=== PATIENT | male | born 1970 | race African-American/Black ===

== ENCOUNTER 2018-01-05 10:12 | Emergency (ER) | payer OTHER ==
--- OUTSIDE RECORDS SUMMARY | 2018-01-05 10:14 | XMS REPORT | Clinical Summary ---
:1970 Author Organization [facility] Address [address] [place] [address] Care Team Providers Name Role Phone Rafael Santos MD Primary Care Provider Allergies Active Allergy Reactions Severity Noted Date Comments Adhesive Tape-Silicones Dermatitis High 06/15/2016 Medipore H surgical soft cloth tape also causes Blisters. Current Medications Prescription Sig. Disp. Refills Start Date End Date Status amLODIPine (NORVASC) 10 10 mg. 08/21/2012 Active MG tablet lisinopril-hydrochloroth 1 tablet. 08/21/2012 Active iazide (PRINZIDE,ZESTORETIC) 20-25 mg per tablet multivitamin with Take 1 tablet by Active minerals tablet mouth daily. ondansetron (ZOFRAN) 8 TAKE 1 TABLET BY 5 04/26/2017 Active MG tablet MOUTH EVERY 8 HOURS NEEDED FOR NAUSEA AND VOMITING lisinopril-hydrochloroth Take 1 tablet by 0 04/24/2017 Active iazide mouth 2 (two) times (PRINZIDE,ZESTORETIC) a day. 20-12.5 mg per tablet Active Problems Problem Noted Date History of kidney cancer 10/31/2016 Encounters Date Type Specialty Care Team Description 07/20/2017 Abstract General Surgery Wendi Petit MD 07/20/2017 Abstract General Surgery Wendi Petit MD 05/05/2017 Office Visit Urology Mervin Moreno History of kidney cancer MD Slaas (Primary Dx) Yenny Denton MD 05/04/2017 Telephone Urology Yenny Denton MD 03/29/2017 Telephone Urology Sandra Fields MA after 01/04/2017 Family History Medical History Relation Name Comments No Known Problems Brother No Known Problems Daughter Diabetes Father Hypertension Father No Known Problems Maternal Grandfather No Known Problems Maternal Grandmother Diabetes Mother Hypertension Mother No Known Problems Paternal Grandfather No Known Problems Paternal Grandmother Diabetes Sister No Known Problems Son Relation Name Status Comments Brother Daughter Father Alive Maternal Grandfather Maternal Grandmother Mother Alive Paternal Grandfather Paternal Grandmother Sister Alive Son Social History Tobacco Use Types Packs/Day Years Used Date Never Smoker Smokeless Tobacco: Never Used Alcohol Use Drinks/Week oz/Week Comments Yes occasional beer Sex Assigned at Date Recorded Not on file Last Filed Vital Signs Not on file Plan of Treatment Health Maintenance Due Date Last Done Comments INFLUENZA VACCINE 03/07/2018 08/21/2012 Implants Implanted Type Area Mainspring Strip Gauger Device Expiration Model / Identifier Date Serial / Lot Kit Selnt Plrl Air Leak 4ml Strl Progel - [id number] Surgical N/A: N/A [employer] [id number] / Implanted: 05/11/2016 (Quantity not on file) Implants; / Expanders; Extenders; Surgical Wires Results POC urinalysis dipstick (05/05/2017 12:21 PM) Component Value Ref Range Color urine, POC Yellow Clarity urine, POC Clear Glucose urine, POC Negative Negative Bilirubin urine, POC Negative Negative Ketones urine, POC Negative Negative Specific gravity urine, POC 1.020 1.005 - 1.030 Blood urine, POC Negative Negative pH urine, POC 6.0 5.0, 5.5, 6.0, 6.5, 7.0, 7.5, 8.0, 8.5 Protein urine, POC Negative Negative Urobilinogen urine, POC <2.0 <2.0 Nitrite urine, POC Negative Negative Leukocyte esterase urine, POC Negative Negative Specimen Performing Laboratory Urine after 01/04/2017 Insurance Payer Benefit Plan / Group Subscriber ID Type Phone Address AETNA AETNA HMO,POS,EPO, MC/EC xxxxxx HMO Home: [address] [phone] [place] [id number] [address] [place] [address]
[2018-01-05 11:26] LABS: Absolute Lymphocytes (CBC) 1.5 K/uL (0.7-4.9); Absolute Neutrophil 3.7 K/uL (1.8-8.0); Basophils % 0.6 % (0-1.3); Eosinophils % 2.2 % (0-4.4); Hematocrit 38.1 % (39.6-49.0); Lymphocytes % 23.3 % (15.3-44.8); MPV 7.2 fL (7.6-11.3); Monocytes % 15.3 % (3.3-12.3); RBC Red Blood Cell Count 4.18 M/uL (4.33-5.43)
[2018-01-05 11:27] LABS: Protime INR 1.11
[2018-01-05 11:35] LABS: Potassium 3.4 mEq/L (3.6-5.0)
[2018-01-05 12:00] LABS: Blood Morphology Comment NOT SEEN (NOT SEEN); Platelet Estimate ADEQ; Urine White Blood Cell Casts OK
--- NOTE | 2018-01-05 12:19 | RAD REPORT ---
EXAM DESCRIPTION: CT - Chest For Pe Angio - 01/05/2018 12:07 pm CLINICAL HISTORY: Chest pain, shortness of breath, colon cancer history COMPARISON: Chest film January 05, CT chest June 2017 TECHNIQUE: Dynamically enhanced 3 mm thick images of the chest were obtained during administration o f approximately 150mL Isovue 370 IV contrast. Coronal and oblique reconstruction images were generate d and reviewed. Exam utilizes a protocol to evaluate the pulmonary arterial tree. All CT scans are performed using dose optimization technique as appropriate and may include automated exposure control or mA/KV adjustment according to patient size. FINDINGS: No pulmonary emboli are identified. The aorta as imaged shows no acute or suspicious finding. Large pericardial effusion is present up to 3 cm in thickness. This is new from comparison. The patient has innumerable variably sized pulmonary metastatic lesions. These are progressive from t he prior examination. Metastatic disease is most pronounced in the upper lung escobar were the nodules have coalesced into large areas of airspace opacification. No pleural effusion or pleural thickening . No significant mediastinal or hilar lymphadenopathy. No hematoma or mass of the chest wall. Patient h as prominent degenerative change at the first rib articulation with the sternum. There is a fracture of the second rib at the junction with the sternum. No other rib fractures seen. The second rib fract ure is not clearly pathologic. No hematoma, mass or other focal abnormality at the fracture site. Analilia r the patient's right-sided port there is no hematoma, fluid or other focal abnormality. Skeletal mus culature is unremarkable. IMPRESSION: No pulmonary emboli. Large pericardial effusion up to 3 cm in thickness. This is new from the June 2017 imaging. Innumerable pulmonary metastatic lesions progressive from already very advanced disease in June 08. Nodules in the upper lung escobar have coalesced into large areas of lung parenchymal opacificati on. Anterior right second rib fracture at the junction with the sternum. No definitive metastatic etiolog y though this would still be most likely given the absence of any trauma.No muscle or soft tissue abn ormality near the patient's port.
--- NOTE | 2018-01-05 12:36 | RAD REPORT ---
EXAM DESCRIPTION: RAD - Chest Single View - 01/05/2018 11:41 am CLINICAL HISTORY: Anterior chest pain, cough, colon cancer COMPARISON: June 2017 TECHNIQUE: AP portable chest image was obtained 1132 hours . FINDINGS: Lung volumes are low. Port-A-Cath is in place. Cardiac silhouette is grossly enlarged with margins poorly defined and hypodense. This is a pattern commonly seen with large pericardial effusio n. Innumerable metastatic lesions are present throughout the lung escobar progressive since prior imagin g. No gross bone deformity seen. No acute aortic findings suspected. IMPRESSION: Innumerable metastatic lesions throughout the lung escobar progressive from June 2017 . Large pericardial effusion.
--- NOTE | 2018-01-05 13:37 | EKG ---
Test Date: 2018-01-05 Test Time: 10:21:18 Buffer Operator: JOHNNY MEASUREMENT RESULTS: Intervals: Rate: 118 AK: 144 QRSD: 86 QT: 322 QTc: 451 [place]: P: 37 AK: 144 QRS: 44 T: 49 INTERPRETIVE STATEMENTS: Sinus tachycardia Otherwise normal ECG Compared to ECG 07/05/2017 08:11:19 No significant changes Electronically Signed On 01-05-18 13:36:23 CDT by Vimal Thompson
--- NOTE | 2018-01-05 14:04 | ER ---
Nurse's Notes [facility] Name: Juan Mott Age: 47 yrs Sex: Male : 1970 Arrival Date: 01/05/2018 Time: 10:14 Bed 7 Private MD: Rafael Santos Diagnosis: Dyspnea;Fracture of one rib, right side Presentation: 01/05 10:20 Presenting complaint: Patient states: SOB x "few days, " Pt reports a "sore muscle sv under where my port is" that is felt when he coughs. Pt is pointing to the right side of his chest with no radiation. Pt uses O2 \\T\\ 2L per NC at home and is on it here. Transition of care: patient was not received from another setting of care. Onset of symptoms was January 01, 2018. Care prior to arrival: None. 10:20 Method Of Arrival: Wheelchair sv 10:20 Acuity: MELISSA 3 sv 10:21 Risk Assessment: Do you want to hurt yourself or someone else? Patient reports no sv desire to harm self or others. Initial Sepsis Screen: Does the patient meet any 2 criteria? No. Patient's initial sepsis screen is negative. Does the patient have a suspected source of infection? No. Patient's initial sepsis screen is negative. Triage Assessment: 10:25 General: Appears in no apparent distress. comfortable, well developed, Behavior is sv calm, cooperative, appropriate for age. Pain: Complains of pain in right clavicle and anterior aspect of right upper chest Pain does not radiate. Pain currently is 0 out of 10 on a pain scale. at worst was 3 out of 10 on a pain scale. Quality of pain is described as "soreness" Pain began 2-3 days ago. Is intermittent, episodic, Aggravated by "coughing". EENT: No signs and/or symptoms were reported regarding the EENT system. Neuro: Level of Consciousness is awake, alert, obeys commands, Oriented to person, place, time, situation, Moves all extremities. Full function Gait is steady, Speech is normal. Cardiovascular: Heart tones S1 S2 present Patient's skin is warm and dry. Pulses are 3+ in right radial artery and left radial artery. Respiratory: Reports shortness of breath on exertion pain with cough Respiratory effort is even, unlabored, Respiratory pattern is symmetrical, tachypnea Breath sounds are clear bilaterally. Derm: Skin is pink, warm \\T\\ dry. Historical: - Allergies: 10:34 NKA; sv - Home Meds: 10:34 experimental cancer drug [Active]; sv - PMHx: 10:34 colon cancer; with mets to the lungs; Hypertension; sv - PSHx: 10:34 colon cancer surgery; Hernia repair; kidney biopsy; partial right kidney removed d/t sv cancer growth; - Immunization history:: Adult Immunizations up to date. - Social history:: Smoking status: Patient/guardian denies using tobacco, Patient/guardian denies using street drugs, IV drugs. - Ebola Screening: : Patient negative for fever greater than or equal to 101.5 degrees Fahrenheit, and additional compatible Ebola Virus Disease symptoms Patient denies exposure to infectious person Patient denies travel to an Ebola-affected area in the 21 days before illness onset No symptoms or risks identified at this time. Screenin:35 Abuse screen: Denies threats or abuse. Denies injuries from another. Nutritional sv screening: No deficits noted. Tuberculosis screening: No symptoms or risk factors identified. Fall Risk None identified. Assessment: 11:30 Reassessment: Patient appears in no apparent distress at this time. No changes from sv previously documented assessment. Patient and/or family updated on plan of care and expected duration. Pain level reassessed. Patient is alert, oriented x 3, equal unlabored respirations, skin warm/dry/pink. 14:37 Reassessment: Patient appears in no apparent distress at this time. No changes from sv previously documented assessment. Patient and/or family updated on plan of care and expected duration. Pain level reassessed. Patient is alert, oriented x 3, equal unlabored respirations, skin warm/dry/pink. Vital Signs: 10:34 BP 107 / 71; Pulse 119; Resp 25; Temp 98.5; Pulse Ox 98% on 3 lpm NC; Weight 117.93 kg sv (R); Height 6 ft. 1 in. (185.42 cm) (R); Pain 0/10; 11:45 BP 99 / 78; Pulse 116; Resp 28; Pulse Ox 100% on 3 lpm NC; sv 13:09 BP 102 / 78; Pulse 112 MON; Resp 26; Pulse Ox 100% on 3 lpm NC; sv 10:34 Body Mass Index 34.30 (117.93 kg, 185.42 cm) sv 13:09 Sinus tachycardia sv ED Course: 10:14 Patient arrived in ED. as 10:14 Rafael Santos MD is Private Physician. as 10:20 Vanessa Adams, LETICIA is Primary Nurse. sv 10:22 Evaristo Kwan MD is Attending Physician. gs 10:25 EKG done, by configuration technician. reviewed by Evaristo Kwan MD. at1 10:31 Triage completed. sv 10:35 Arm band placed on right wrist. sv 10:35 Patient has correct armband on for positive identification. Bed in low position. Call sv light in reach. Adult w/ patient. site monitor on. Pulse ox on. NIBP on. Door closed. Head of bed elevated. 10:36 Oxygen administration via nasal cannula \\T\\ 3L/min. sv 10:38 Initial lab(s) drawn, by me, held in ED. dh3 10:41 Inserted saline lock: 20 gauge in left forearm, using aseptic technique. Blood dh3 collected. 11:06 Radiology exam delayed due to lab results not completed at this time. (BUN/Creatinine). kw1 11:39 CBC Smear Scan Sent. sv 11:39 XRAY Chest (1 view) Sent. sv 11:42 XRAY Chest (1 view) In Process Unspecified. EDMS 12:[address] via wheelchair. sw 12:07 CT Chest For PE Angio In Process Unspecified. EDMS 12:11 CT completed. Patient tolerated procedure well. Patient moved back from CT. sw 13:51 Echocardiogram was performed. at1 14:38 No provider procedures requiring assistance completed. IV discontinued, intact, sv bleeding controlled, No redness/swelling at site. Pressure dressing applied. Administered Medications: No medications were administered Outcome: 14:03 Discharge ordered by . gs 14:38 Discharged to home ambulatory, via wheelchair, with family, with his home oxygen bottle sv and tubing 14:38 Condition: stable 14:38 Discharge instructions given to patient, Instructed on discharge instructions, follow up and referral plans. no drinking with medication, no driving heavy equipment, medication usage, Demonstrated understanding of instructions, follow-up care, medications, Prescriptions given X 1. 14:39 Patient left the ED. sv Signatures: Dispatcher [employer] EDPA Vanessa Adams RN RN sv Martinez, Amelia as gonzales, Amanda, residency director EKG Tat1 Lucita Feliciano Deanna 3 Evaristo Kwan MD MD Christy Xavier1 Corrections: (The following items were deleted from the chart) 10:56 10:34 BP 107 / 71; Pulse 119bpm; Resp 20bpm; Pulse Ox 98% 3 lpm Nasal Cannula; Temp sv 98.5F; 117.93 kg Reported; Height 6 ft. 1 in. Reported; BMI: 34.3; Pain 0/10; sv 10:57 10:25 Cardiovascular: Patient's skin is warm and dry. sv sv 10:57 10:25 Respiratory: Reports shortness of breath on exertion pain with cough Respiratory sv effort is even, unlabored, Respiratory pattern is regular, symmetrical, sv
--- NOTE | 2018-01-05 14:04 | EDPHYS ---
Physician Documentation [facility] Name: Juan Mott Age: 47 yrs Sex: Male : 1970 Arrival Date: 01/05/2018 Time: 10:14 Bed 7 Private MD: Rafael Santos ED Physician Evaristo Kwan HPI: 01/05 16:33 This 47 yrs old Black Male presents to ER via Wheelchair with complaints of Chest Pain, gs Shortness Of Breath. 16:33 The patient or guardian reports chest pain that is located primarily in the anterior gs chest wall, right. Onset: 2 day(s) ago, and became persistent. The pain does not radiate. Associated signs and symptoms: Pertinent positives: shortness of breath. The chest pain is described as sharp. Duration: The patient or guardian reports multiple episodes, that are intermittent, that wax and wane, with no pattern. Modifying factors: the symptoms are aggravated by deep breath, twisting torso. Severity of pain: At its worst the pain was moderate in the emergency department the pain is unchanged. The patient has experienced similar episodes in the past, a few times. Historical: - Allergies: 10:34 NKA; sv - Home Meds: 10:34 experimental cancer drug [Active]; sv - PMHx: 10:34 colon cancer; with mets to the lungs; Hypertension; sv - PSHx: 10:34 colon cancer surgery; Hernia repair; kidney biopsy; partial right kidney removed d/t sv cancer growth; - Immunization history:: Adult Immunizations up to date. - Social history:: Smoking status: Patient/guardian denies using tobacco, Patient/guardian denies using street drugs, IV drugs. - Ebola Screening: : Patient negative for fever greater than or equal to 101.5 degrees Fahrenheit, and additional compatible Ebola Virus Disease symptoms Patient denies exposure to infectious person Patient denies travel to an Ebola-affected area in the 21 days before illness onset No symptoms or risks identified at this time. ROS: 16:33 All other systems are negative. gs Exam: 16:33 Head/Face: Normocephalic, atraumatic. Eyes: Pupils equal round and reactive to light, gs extra-ocular motions intact. Lids and lashes normal. Conjunctiva and sclera are non-icteric and not injected. Cornea within normal limits. Periorbital areas with no swelling, redness, or edema. ENT: Nares patent. No nasal discharge, no septal abnormalities noted. Tympanic membranes are normal and external auditory canals are clear. Oropharynx with no redness, swelling, or masses, exudates, or evidence of obstruction, uvula midline. Mucous membranes moist. Neck: Trachea midline, no thyromegaly or masses palpated, and no cervical lymphadenopathy. Supple, full range of motion without nuchal rigidity, or vertebral point tenderness. No Meningismus. Chest/axilla: Normal chest wall appearance and motion. Nontender with no deformity. No lesions are appreciated. Abdomen/GI: Soft, non-tender, with normal bowel sounds. No distension or tympany. No guarding or rebound. No evidence of tenderness throughout. Back: No spinal tenderness. No costovertebral tenderness. Full range of motion. Skin: Warm, dry with normal turgor. Normal color with no rashes, no lesions, and no evidence of cellulitis. MS/ Extremity: Pulses equal, no cyanosis. Neurovascular intact. Full, normal range of motion. Neuro: Awake and alert, GCS 15, oriented to person, place, time, and situation. Cranial nerves II-XII grossly intact. Motor strength 5/5 in all extremities. Sensory grossly intact. Cerebellar exam normal. Normal gait. 16:33 Constitutional: The patient appears alert, awake. 16:33 Cardiovascular: Rate: tachycardic, Rhythm: regular, Pulses: no pulse deficits are appreciated, Heart sounds: normal. 16:33 ECG was reviewed by the Attending Physician. 16:33 Respiratory: the patient does not display signs of respiratory distress, Respirations: tachypnea, Breath sounds: decreased breath sounds, that are mild, are located in both bases. Vital Signs: 10:34 BP 107 / 71; Pulse 119; Resp 25; Temp 98.5; Pulse Ox 98% on 3 lpm NC; Weight 117.93 kg sv (R); Height 6 ft. 1 in. (185.42 cm) (R); Pain 0/10; 11:45 BP 99 / 78; Pulse 116; Resp 28; Pulse Ox 100% on 3 lpm NC; sv 13:09 BP 102 / 78; Pulse 112 MON; Resp 26; Pulse Ox 100% on 3 lpm NC; sv 10:34 Body Mass Index 34.30 (117.93 kg, 185.42 cm) sv 13:09 Sinus tachycardia sv MDM: 11:03 Patient medically screened. gs 16:33 Differential diagnosis: abnormal EKG, pulmonary embolus, thoracic aortic disection. Data reviewed: vital signs, nurses notes. Response to treatment: the patient's symptoms have mildly improved after treatment, and as a result, I will discharge patient. 01/05 11:04 Order name: Basic Metabolic Panel; Complete Time: 12:47 01/05 11:04 Order name: CBC with Diff; Complete Time: 12:47 01/05 11:04 Order name: PT-INR; Complete Time: 12:47 01/05 11:04 Order name: Troponin (emerg Dept Use Only); Complete Time: 12:47 01/05 11:04 Order name: XRAY Chest (1 view); Complete Time: 12:47 01/05 11:32 Order name: CBC Smear Scan; Complete Time: 12:47 EDMS 01/05 11:04 Order name: EKG; Complete Time: 11:05 01/05 11:04 Order name: Cardiac monitoring; Complete Time: 11:04 01/05 11:04 Order name: EKG - Nurse/Tech; Complete Time: 11:04 01/05 11:04 Order name: IV Saline Lock; Complete Time: 11:05 01/05 11:04 Order name: Labs collected and sent; Complete Time: 11:05 01/05 11:04 Order name: O2 Per Protocol; Complete Time: 11:05 01/05 11:04 Order name: CT Chest For PE Angio; Complete Time: 12:47 01/05 13:12 Order name: Echo w/ Doppler bd 01/05 11:04 Order name: O2 Sat Monitoring; Complete Time: 11:05 gs EC:33 Rate is 118 beats/min. Rhythm is regular, Sinus tachycardia. VT interval is normal. QRS gs interval is normal. T waves are Normal. No ST changes noted. Clinical impression: Sinus tachycardia. Interpreted by me. Administered Medications: No medications were administered Disposition: 01/05/18 14:03 Discharged to Home. Impression: Dyspnea, Fracture of one rib, right side. - Condition is Stable. - Discharge Instructions: Rib Fracture, Shortness of Breath, [id number]. - Prescriptions for Tylenol- Codeine #4 300-60 mg Oral Tablet - take 1 tablet by ORAL route every 6 hours As needed; 10 tablet. - Medication Reconciliation Form, Thank You Letter, Antibiotic Education, Prescription Opioid Use form. - Follow up: Private Physician; When: 1 week; Reason: Recheck today's complaints, Re-evaluation by your physician. Signatures: Dispatcher [employer] Vanessa Seaman RN RN sv Starr, Gregory, MD MD gs Corrections: (The following items were deleted from the chart) 14:39 14:03 01/05/2018 14:03 Discharged to Home. Impression: Dyspnea; Fracture of one rib, sv right side. Condition is Stable. Forms are Medication Reconciliation Form, Thank You Letter, Antibiotic Education, Prescription Opioid Use. Follow up: Private Physician; When: 1 week; Reason: Recheck today's complaints, Re-evaluation by your physician. gs
--- NOTE | 2018-01-05 14:24 | ECHO ---
HEIGHT: ft in WEIGHT: lb oz DATE OF STUDY: 01/05/[address]: Evaristo Kwan MD 2-DIMENSIONAL: YES M.MODE: YES DOPPLER: YES COLOR FLOW: YES TDS: PORTABLE: DEFINITY: BUBBLE STUDY: DIAGNOSIS: PERICARDIAL EFFUSION CARDIAC HISTORY: CATHERIZATION: NO SURGERY: NO PROSTHETIC VALVE: NO PACEMAKER: NO MEASUREMENTS (cm) DIASTOLIC (NORMALS) SYSTOLIC (NORMALS) IVSd 1.2 (0.6-1.2) LA Diam 2.2 (1.9-4.0) LVEF 55% LVIDd 3.1 (3.5-5.7) LVIDs 2.3 (2.0-3.5) %FS 27% LVPWd 1.5 (0.6-1.2) Ao Diam 3.4 (2.0-3.7) 2 DIMENSIONAL ASSESSMENT: RIGHT ATRIUM: NORMAL LEFT ATRIUM: NORMAL RIGHT VENTRICLE: NORMAL LEFT VENTRICLE: LEFT VENTRICULAR HYPERTROPHY TRICUSPID VALVE: NORMAL MITRAL VALVE: NORMAL PULMONIC VALVE: NORMAL AORTIC VALVE: NORMAL PERICARDIAL EFFUSION: SMALL AORTIC ROOT: NORMAL LEFT VENTRICULAR WALL MOTION: NORMAL DOPPLER/COLOR FLOW: IMPAIRED LEFT VENTRICULAR COMPLIANCE. COMMENTS: NORMAL LEFT VENTRICULAR EJECTION FRACTION. SMALL PERICARDIAL EFFUSION WITHOUT SIGNS OF TAMPONADE. TECHNOLOGIST: JACKIE CABAN
[2018-01-05 14:45] VITALS: TEMP 98.5
[2018-01-05 14:46] VITALS: O2SAT 100
[2018-01-05 14:47] VITALS: BP 102/78
== END 2018-01-05 14:39 | disposition home or self-care (01) ==
LOC: ER 10:12
DX: S22.31XA Fracture of one rib, right side, initial encounter for closed fracture (principal); I10 Essential (primary) hypertension; Z85.118 Personal history of other malignant neoplasm of bronchus and lung; Z85.038 Personal history of other malignant neoplasm of large intestine
CPT/HCPCS: 36415; 71045; 71275; 80048; 84484; 85025; 85610; 93005; 93306; 99285; Q9967

== ENCOUNTER 2018-01-19 10:06 | Emergency (ER) | payer OTHER ==
--- OUTSIDE RECORDS SUMMARY | 2018-01-19 10:08 | XMS REPORT | Clinical Summary ---
:1970 Author Organization [facility] Address [address] [place] [address] Care Team Providers Name Role Phone Rafael [...] Mervin Moreno History of kidney cancer MD Salas (Primary Dx) Yenny Denton MD 05/04/2017 Telephone Urology Yenny Denton MD 03/29/2017 Telephone Urology Sandra Fields MA after 01/18/2017 Family History Medical History Relation Name Comments [...] VACCINE 03/07/2018 08/21/2012 Implants Implanted Type Area Store Mgr Device Expiration Model / Identifier Date Serial / Lot Kit Selnt Plrl Air Leak 4ml Strl Progel - [id number] Surgical N/A: N/A [employer] [id number] / Implanted: 05/11/2016 (Quantity not on file) [...] Negative Negative Specimen Performing Laboratory Urine after 01/18/2017 Insurance Payer Benefit Plan / Group Subscriber ID Type Phone Address AETNA AETNA HMO,POS,EPO, MC/EC xxxxxx HMO Home: [address] [phone] [place] [address] [address] [place] [address]
[2018-01-19 11:08] LABS: Absolute Lymphocytes (CBC) 0.8 K/uL (0.7-4.9); Absolute Monocytes 0.9 K/uL (0.1-1.3); Absolute Neutrophil 6.3 K/uL (1.8-8.0); Basophils % 0.8 % (0-1.3); Eosinophils % 2.4 % (0-4.4); Hematocrit 27.6 % (39.6-49.0); Lymphocytes % 9.5 % (15.3-44.8); MCH 30.9 pg (27.0-35.0); MCV 89.8 fL (80-100); MPV 7.7 fL (7.6-11.3); RBC Red Blood Cell Count 3.07 M/uL (4.33-5.43)
[2018-01-19 11:14] LABS: Bicarbonate 30 mEq/L (21-31); Glucose Level 125 mg/dL (65-120); Sodium Level 137 mEq/L (135-145)
[2018-01-19 11:17] LABS: Protime INR 1.19
[2018-01-19 11:20] LABS: ALT/SGPT 70 IU/L (10-60); AST/SGOT 60 IU/L (10-42); Alkaline Phosphatase 104 IU/L (42-121); BUN Blood Urea Nitrogen 10 mg/dL (6-20); Bilirubin Direct 0.1 mg/dL (0-0.2); Bilirubin Total 0.5 mg/dL (0.3-1.2); Creatine Phosphokinase 83 IU/L (22-269); Magnesium 1.9 mg/dL (1.8-2.5)
--- NOTE | 2018-01-19 11:21 | RAD REPORT ---
EXAM DESCRIPTION: RAD - Chest Single View - 01/19/2018 11:00 am CLINICAL HISTORY: Shortness of breath. COMPARISON: 01/05/2018 FINDINGS: Portable technique limits examination quality. Extensive bilateral pulmonary nodules compatible with known metastatic disease are again seen, simila r to comparative radiographs. The heart is mildly prominent size. Right-sided port catheter its tip i n the SVC. No displaced fractures. IMPRESSION: Stable chest since 01/05/2018.
[2018-01-19 11:23] LABS: CKMB Creatine Kinase MB 0.8 ng/ml (0.3-4.0)
--- NOTE | 2018-01-19 12:55 | RAD REPORT ---
EXAM DESCRIPTION: CT - Chest For Pe Angio - 01/19/2018 12:39 pm CLINICAL HISTORY: Shortness of breath with colon cancer and metastases COMPARISON: January 05, 2018 TECHNIQUE: Dynamically enhanced axial 3 mm thick images of the chest were obtained during administra tion of <100> mL Isovue 370 IV contrast. Coronal and oblique reconstruction images were generated and reviewed. Exam utilizes a protocol for optimal evaluation of pulmonary arterial tree. All CT scans are performed using dose optimization technique as appropriate and may include automated exposure control or mA/KV adjustment according to patient size. FINDINGS: A pulmonary embolus is not seen. A thoracic aortic aneurysm is not noted. A pleural effusion is not seen. A large pericardial effusion has mildly increased in size Extensive bilateral pulmonary nodules are again demonstrated. IMPRESSION: Negative for a pulmonary embolism. Mild enlargement of a large pericardial effusion Extensive pulmonary metastases
--- NOTE | 2018-01-19 14:06 | EKG ---
Test Date: 2018-01-19 Test Time: 10:41:26 Loop Machine Operator: MARI MEASUREMENT RESULTS: Intervals: Rate: 94 UT: 152 QRSD: 80 QT: 352 QTc: 440 [place]: P: 32 UT: 152 QRS: 9 T: 40 INTERPRETIVE STATEMENTS: Normal sinus rhythm Normal ECG Compared to ECG 01/05/2018 10:21:18 Sinus tachycardia no longer present Electronically Signed On 01-19-18 14:05:56 CDT by Vimal Thompson
--- NOTE | 2018-01-19 15:01 | ECHO ---
HEIGHT: ft in WEIGHT: lb oz DATE OF STUDY: 01/19/[address]: Bebo Beauchamp NP 2-DIMENSIONAL: YES M.MODE: YES DOPPLER: YES COLOR FLOW: YES TDS: PORTABLE: DEFINITY: BUBBLE STUDY: DIAGNOSIS: SHORTNESS OF BREATH/ HISTORY OF PERICARDIAL EFFUSION CARDIAC HISTORY: CATHERIZATION: NO SURGERY: YES PROSTHETIC VALVE: NO PACEMAKER: NO MEASUREMENTS (cm) DIASTOLIC (NORMALS) SYSTOLIC (NORMALS) IVSd 1.2 (0.6-1.2) LA Diam 3.4 (1.9-4.0) LVEF 62% LVIDd 4.1 (3.5-5.7) LVIDs 2.8 (2.0-3.5) %FS 33% LVPWd 1.3 (0.6-1.2) Ao Diam 3.5 (2.0-3.7) 2 DIMENSIONAL ASSESSMENT: RIGHT ATRIUM: NORMAL LEFT ATRIUM: NORMAL RIGHT VENTRICLE: NORMAL LEFT VENTRICLE: LEFT VENTRICULAR HYPERTROPHY TRICUSPID VALVE: NORMAL MITRAL VALVE: NORMAL PULMONIC VALVE: NORMAL AORTIC VALVE: NORMAL PERICARDIAL EFFUSION: SMALL TO MODERATE AORTIC ROOT: NORMAL LEFT VENTRICULAR WALL MOTION: NORMAL DOPPLER/COLOR FLOW: SMALL TO MODERATE PERICARDIAL EFFUSION. NO ECHO SIGNS OF TAMPONADE. COMMENTS: NORMAL LEFT VENTRICULAR EJECTION FRACTION. LEFT VENTRICULAR HYPERTROPHY. SMALL TO MODERATE PERICARDIAL EFFUSION. TECHNOLOGIST: MAGY PEÑA
--- NOTE | 2018-01-19 15:55 | ER ---
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 Transition of care: patient was not received from another setting of care. Onset of symptoms was January 19, 2018. Risk Assessment: Do you want to hurt yourself or someone else? Patient reports no desire to harm self or others. Care prior to arrival: None. 10:13 Method Of Arrival: EMS: [facility] aj 10:13 Acuity: MELISSA 3 aj 16:31 Initial Sepsis Screen: Does the patient meet any 2 criteria? No. Patient's initial em sepsis screen is negative. Does the patient have a suspected source of infection? No. Patient's initial sepsis screen is negative. Triage Assessment: 10:17 General: Appears in no apparent distress. comfortable, Behavior is calm, cooperative, aj appropriate for age. Pain: Denies pain. Neuro: Level of Consciousness is awake, alert, obeys commands, Oriented to person, place, time, situation, Appropriate for age. Respiratory: Reports shortness of breath on exertion Airway is patent Respiratory effort is even, unlabored, Respiratory pattern is regular, symmetrical, Onset: The symptoms/episode began/occurred just prior to arrival, the patient reports symptoms have resolved. Derm: Skin is intact, is healthy with good turgor, Skin is pink, warm \T\ dry. normal. Historical: - Allergies: 10:17 NKA; aj - Home Meds: 10:17 experimental cancer drug [Active]; Zofran Oral [Active]; aj 13:45 Zyprexa 2.5 mg Oral tab 2 tabs once daily [Active]; tramadol 50 mg Oral tab 1 tab every aj 6 hours [Active]; allopurinol 100 mg Oral tab 1 tab once daily [Active]; - PMHx: 10:17 colon cancer; with mets to the lungs; Hypertension; aj - PSHx: 10:17 Hernia repair; Colon resection; Right Nephrectomy; aj - Immunization history:: Adult Immunizations up to date. - Social history:: Smoking status: Smoking status: Patient/guardian denies using tobacco. - Ebola Screening: : Patient negative for fever greater than or equal to 101.5 degrees Fahrenheit, and additional compatible Ebola Virus Disease symptoms Patient denies exposure to infectious person Patient denies travel to an Ebola-affected area in the 21 days before illness onset No symptoms or risks identified at this time. Screenin:53 Abuse screen: Denies threats or abuse. Denies injuries from another. Nutritional aj screening: No deficits noted. Tuberculosis screening: No symptoms or risk factors identified. Fall Risk None identified. Assessment: 10:36 Reassessment: See triage. aj 12:11 Reassessment: Patient appears in no apparent distress at this time. No changes from aj previously documented assessment. Patient and/or family updated on plan of care and expected duration. Pain level reassessed. Patient is alert, oriented x 3, equal unlabored respirations, skin warm/dry/pink. Patient states symptoms have improved. 16:32 Respiratory: em 16:32 Cardiovascular: Rhythm is regular. em Vital Signs: 10:17 BP 137 / 97; Pulse 104; Resp 26; Temp 98.5; Pulse Ox 98% on 5 lpm NC; Weight 117.93 kg; aj Height 6 ft. 1 in. (185.42 cm); 10:36 BP 125 / 96; Pulse 96; Resp 24; Pulse Ox 99% on 5 lpm NC; aj 12:11 BP 152 / 89; Pulse 92; Resp 26; Pulse Ox 98% on 5 lpm NC; aj 13:18 BP 150 / 99; Pulse 80; Resp 22; Pulse Ox 100% on 5 lpm NC; aj 14:18 BP 149 / 108; Pulse 88; Resp 28; Pulse Ox 100% on 5 lpm NC; dh3 10:17 Body Mass Index 34.30 (117.93 kg, 185.42 cm) aj ED Course: 10:12 Patient arrived in ED. aj 10:14 Triage completed. aj 10:14 Rajani Beauchamp NP is PHCP. pm1 10:14 Tal Carter MD is Attending Physician. pm1 10:17 Arm band placed on left wrist. Patient placed in an exam room, on oxygen, on pulse aj oximetry. 10:27 Monica Cerda RN is Primary Nurse. aj 10:49 Inserted saline lock: 20 gauge in right antecubital area, using aseptic technique. aj Blood collected. 10:59 X-ray completed. Portable x-ray completed in exam room. Patient tolerated procedure ml well. 11:00 XRAY Chest (1 view) In Process Unspecified. EDMS 11:01 EKG done, by lead technologist in cytogenetics. reviewed by Rajani Beauchamp NP. at1 11:30 Radiology exam delayed due to WANTS ME TO CONFIRM ORDER W/ RAJANI BEFORE PE STUDY. 12:36 CT completed. Patient tolerated procedure well. Patient moved to CT via stretcher. Patient moved back from CT. 12:39 CT Chest For PE Angio In Process Unspecified. EDMS 16:30 No provider procedures requiring assistance completed. IV discontinued, intact, em bleeding controlled, No redness/swelling at site. Pressure dressing applied. 16:31 Patient has correct armband on for positive identification. em Administered Medications: No medications were administered Outcome: 15:54 Discharge ordered by MD. pm1 16:31 Discharged to home via wheelchair. em 16:31 Condition: good 16:31 Discharge instructions given to patient, Instructed on discharge instructions, follow up and referral plans. medication usage, Demonstrated understanding of instructions, follow-up care, medications, Prescriptions given X 1. 16:41 Patient left the ED. em Signatures: Dispatcher [employer] Monica Veronica, Hugo Duff RN, WELDING MACHINE OPERATOR/TENDER WELDING MACHINE OPERATOR/TENDER Anna Pierre Amanda, music internship EKG Tat1 Lucita Feliciano Patrick, NP ODD TICKET CLERK pm1 Nina Falk 3 Corrections: (The following items were deleted from the chart) 13:49 10:17 Home Meds: amlodipine 10 mg tab; aj aj 10:17 Home Meds: fluorourcil; aj aj 10:17 Home Meds: irinotecan; aj aj 10:17 Home Meds: Leucovorin Calcium Oral; aj aj 10:17 Home Meds: lisinopril-hydrochlorothiazide 20-12.5 mg Oral tab twice a day; aj aj 10:17 Home Meds: prochlorperazine maleate Oral; aj aj 10:17 Home Meds: Stivarga 40 mg Oral tab 4 tabs daily for 3 weeks, then off for one aj week; aj
--- NOTE | 2018-01-19 15:55 | EDPHYS ---
Physician Documentation [facility] Name: Juan Mott Age: 47 yrs Sex: Male : 1970 Arrival Date: 01/19/2018 Time: 10:12 Bed 13 Private MD: ED Physician Tal Carter HPI: 01/19 12:00 This 47 yrs old Black Male presents to ER via EMS with complaints of Shortness Of pm1 Breath. 12:00 The patient has shortness of breath with light activity. Onset: The symptoms/episode pm1 began/occurred just prior to arrival. Duration: The symptoms are continuous. The patient's shortness of breath is alleviated by nebulizer treatment, by EMS. Associated signs and symptoms: Pertinent negatives: chest pain, non-productive cough, productive cough, diaphoresis, fever. Severity of symptoms: in the emergency department the symptoms have resolved Pain is currently a 0 / 10. The patient has experienced a previous episode, 01/05/2018 Patient was diagnosed with small pericardial effusion. Went to [facility] the next day and had pericardicentesis. Patient with appointment on Monday to see rn post partum and Oncologist at [place] next Monday. Historical: - Allergies: 10:17 NKA; aj - Home Meds: 10:17 experimental cancer drug [Active]; Zofran Oral [Active]; aj 13:45 Zyprexa 2.5 mg Oral tab 2 tabs once daily [Active]; tramadol 50 mg Oral tab 1 tab every aj 6 hours [Active]; allopurinol 100 mg Oral tab 1 tab once daily [Active]; - PMHx: 10:17 colon cancer; with mets to the lungs; Hypertension; aj - PSHx: 10:17 Hernia repair; Colon resection; Right Nephrectomy; aj - Immunization history:: Adult Immunizations up to date. - Social history:: Smoking status: Smoking status: Patient/guardian denies using tobacco. - Ebola Screening: : Patient negative for fever greater than or equal to 101.5 degrees Fahrenheit, and additional compatible Ebola Virus Disease symptoms Patient denies exposure to infectious person Patient denies travel to an Ebola-affected area in the 21 days before illness onset No symptoms or risks identified at this time. ROS: 13:45 Constitutional: Negative for fever, chills, and weight loss, Eyes: Negative for injury, pm1 pain, redness, and discharge, ENT: Negative for injury, pain, and discharge, Neck: Negative for injury, pain, and swelling, Cardiovascular: Negative for chest pain, palpitations, and edema. 13:45 Abdomen/GI: Negative for abdominal pain, nausea, vomiting, diarrhea, and constipation, Back: Negative for injury and pain, : Negative for injury, bleeding, discharge, and swelling, MS/Extremity: Negative for injury and deformity, Skin: Negative for injury, rash, and discoloration, Neuro: Negative for headache, weakness, numbness, tingling, and seizure. 13:45 Respiratory: Positive for shortness of breath, Negative for sputum production, wheezing. Exam: 13:45 Constitutional: This is a well developed, well nourished patient who is awake, alert, pm1 and in no acute distress. Head/Face: Normocephalic, atraumatic. Eyes: Pupils equal round and reactive to light, extra-ocular motions intact. Lids and lashes normal. Conjunctiva and sclera are non-icteric and not injected. Cornea within normal limits. Periorbital areas with no swelling, redness, or edema. ENT: Nares patent. No nasal discharge, no septal abnormalities noted. Tympanic membranes are normal and external auditory canals are clear. Oropharynx with no redness, swelling, or masses, exudates, or evidence of obstruction, uvula midline. Mucous membranes moist. Neck: Trachea midline, no thyromegaly or masses palpated, and no cervical lymphadenopathy. Supple, full range of motion without nuchal rigidity, or vertebral point tenderness. No Meningismus. Chest/axilla: Normal chest wall appearance and motion. Nontender with no deformity. No lesions are appreciated. Cardiovascular: Regular rate and rhythm with a normal S1 and S2. No gallops, murmurs, or rubs. Normal PMI, no JVD. No pulse deficits. Respiratory: Lungs have equal breath sounds bilaterally, clear to auscultation and percussion. No rales, rhonchi or wheezes noted. No increased work of breathing, no retractions or nasal flaring. Abdomen/GI: Soft, non-tender, with normal bowel sounds. No distension or tympany. No guarding or rebound. No evidence of tenderness throughout. Back: No spinal tenderness. No costovertebral tenderness. Full range of motion. Skin: Warm, dry with normal turgor. Normal color with no rashes, no lesions, and no evidence of cellulitis. MS/ Extremity: Pulses equal, no cyanosis. Neurovascular intact. Full, normal range of motion. 13:45 Neuro: Orientation: is normal, Motor: is normal, moves all fours, Sensation: is normal, no obvious gross deficits. Vital Signs: 10:17 BP 137 / 97; Pulse 104; Resp 26; Temp 98.5; Pulse Ox 98% on 5 lpm NC; Weight 117.93 kg; aj Height 6 ft. 1 in. (185.42 cm); 10:36 BP 125 / 96; Pulse 96; Resp 24; Pulse Ox 99% on 5 lpm NC; aj 12:11 BP 152 / 89; Pulse 92; Resp 26; Pulse Ox 98% on 5 lpm NC; aj 13:18 BP 150 / 99; Pulse 80; Resp 22; Pulse Ox 100% on 5 lpm NC; aj 14:18 BP 149 / 108; Pulse 88; Resp 28; Pulse Ox 100% on 5 lpm NC; dh3 10:17 Body Mass Index 34.30 (117.93 kg, 185.42 cm) aj MDM: 10:18 Patient medically screened. pm1 11:00 ED course: Consultation with Dr. Arriola and would like to rule out the patient from pm1 pericardial effusion with tamponade. 15:30 Physician consultation: Vimal Thompson MD Called back with read of echo with Doppler. pm1 small to moderate pleural effusion without tamponade. . 15:45 Physician consultation: Oncologist [facility] Arriola regarding consult, patient's pm1 condition, Has appointment to follow up on Monday with rn post partum and himself. Okay with discharge if echo reviewed by rn post partum . 15:45 ED course: Offered to consult with Dr. Tanvir Bianchi. Patient refused because he is feeling pm1 better and wants to go home. Patient requested albuterol since the breathing treatment helped in route to the ER. 15:53 Data reviewed: vital signs. Data interpreted: Pulse oximetry: on room air is 100 %. pm1 Interpretation: normal. Counseling: I had a detailed discussion with the patient and/or guardian regarding: the historical points, exam findings, and any diagnostic results supporting the discharge/admit diagnosis, lab results, radiology results, the need for outpatient follow up, to return to the emergency department if symptoms worsen or persist or if there are any questions or concerns that arise at home. 01/19 10:34 Order name: Basic Metabolic Panel; Complete Time: 11:23 pm01/19 10:34 Order name: BNP; Complete Time: 11:23 pm01/19 10:34 Order name: CBC with Diff; Complete Time: 11:23 pm01/19 10:34 Order name: Ckmb; Complete Time: 11:23 pm01/19 10:34 Order name: CPK; Complete Time: 11:23 pm01/19 10:34 Order name: LFT's; Complete Time: 11:23 pm01/19 10:34 Order name: Magnesium; Complete Time: 11:23 pm01/19 10:34 Order name: PT-INR; Complete Time: 11:40 pm01/19 10:34 Order name: Ptt, Activated; Complete Time: 11:40 pm01/19 10:34 Order name: Troponin (emerg Dept Use Only); Complete Time: 11:23 pm01/19 10:34 Order name: XRAY Chest (1 view); Complete Time: 11:23 pm01/19 10:37 Order name: Echo w/ Doppler 01/19 10:38 Order name: Creatinine for Radiology; Complete Time: 11:23 pm01/19 11:24 Order name: CT Chest For PE Angio; Complete Time: 13:30 pm01/19 10:34 Order name: EKG; Complete Time: 10:35 pm01/19 10:34 Order name: Cardiac monitoring; Complete Time: 10:35 pm01/19 10:34 Order name: EKG - Nurse/Tech; Complete Time: 11:19 pm01/19 10:34 Order name: IV Saline Lock; Complete Time: 11:19 pm01/19 10:34 Order name: Labs collected and sent; Complete Time: 11:19 pm01/19 10:34 Order name: O2 Per Protocol; Complete Time: 10:35 pm01/19 10:34 Order name: O2 Sat Monitoring; Complete Time: 10:35 pm1 Administered Medications: No medications were administered Disposition: 01/19/18 15:54 Discharged to Home. Impression: Dyspnea, Pericardial effusion. - Condition is Stable. - Discharge Instructions: Pericardial Effusion, Shortness of Breath. - Prescriptions for Albuterol Sulfate 90 mcg/actuation - inhale 1-2 puff by INHALATION route every 4-6 hours; 1 Inhaler. - Medication Reconciliation Form, Thank You Letter form. - Follow up: Emergency Department; When: As needed; Reason: Worsening of condition. Follow up: Private Physician; When: 2 - 3 days; Reason: Recheck today's complaints, Continuance of care, Re-evaluation by your physician. - Problem is new. - Symptoms have improved. Addendum: 01/23/2018 07:04 Co-signature as Attending Physician, Tal Carter MD I agree with the assessment and k dr plan of care. Signatures: Dispatcher [employer] Monica Veronica RN RN aj Rittger, Kevin, MD MD kdr Hugo Tipton, TOLL LINE REPAIRER TOLL LINE REPAIRER em Bebo Beauchamp, FLOOR TRADER FLOOR TRADER pm1 Corrections: (The following items were deleted from the chart) 01/19 13:49 10:17 Home Meds: amlodipine 10 mg tab; aj aj 13:49 10:17 Home Meds: fluorourcil; aj aj 13:49 10:17 Home Meds: irinotecan; aj aj 13:49 10:17 Home Meds: Leucovorin Calcium Oral; aj aj 13:49 10:17 Home Meds: lisinopril-hydrochlorothiazide 20-12.5 mg Oral tab twice a day; aj aj 13:49 10:17 Home Meds: prochlorperazine maleate Oral; aj aj 13:49 10:17 Home Meds: Stivarga 40 mg Oral tab 4 tabs daily for 3 weeks, then off for one aj week; aj 15:57 15:54 01/19/2018 15:54 Discharged to Home. Impression: Shortness of breath. Condition pm1 is Stable. Forms are Medication Reconciliation Form, Thank You Letter, Antibiotic Education, Prescription Opioid Use. Follow up: Emergency Department; When: As needed; Reason: Worsening of condition. Follow up: Private Physician; When: 2 - 3 days; Reason: Recheck today's complaints, Continuance of care, Re-evaluation by your physician. Problem is new. Symptoms have improved. pm1 16:41 15:57 01/19/2018 15:54 Discharged to Home. Impression: Dyspnea; Pericardial effusion. em Condition is Stable. Forms are Medication Reconciliation Form, Thank You Letter, Antibiotic Education, Prescription Opioid Use. Follow up: Emergency Department; When: As needed; Reason: Worsening of condition. Follow up: Private Physician; When: 2 - 3 days; Reason: Recheck today's complaints, Continuance of care, Re-evaluation by your physician. Problem is new. Symptoms have improved. pm1
[2018-01-19 17:21] VITALS: TEMP 98.5
[2018-01-19 17:25] VITALS: O2SAT 100
[2018-01-19 17:26] VITALS: BP 149/108
== END 2018-01-19 16:41 | disposition home or self-care (01) ==
LOC: ER 10:06
DX: I31.3 Pericardial effusion (noninflammatory) (principal); I10 Essential (primary) hypertension; Z85.118 Personal history of other malignant neoplasm of bronchus and lung; Z85.038 Personal history of other malignant neoplasm of large intestine
CPT/HCPCS: 36415; 71045; 71275; 80048; 80076; 82550; 82553; 83735; 83880; 84484; 85025; 85610; 85730; 93005; 93306; 99285; Q9967